=== PATIENT | female | born 1975 | race Two or more races ===

== ENCOUNTER 2018-03-10 11:15 | Emergency (ER) | payer MEDICAID ==
[~2018-03-10] VITALS: Ht 160 cm; Wt 61.4 kg
[2018-03-10 11:24] VITALS: BP 135/87
[2018-03-10] MEDS ORDERED: HYDROcodone/APAP 5/325 TABLET ONE ×2 (11:35→12:33)
[2018-03-10] MEDS ORDERED: HYDROcodone/APAP 5/325 TABLET PO ONE ×2 (12:00→13:00)
== END 2018-03-10 15:40 | disposition home or self-care (01) ==
LOC: ED 13:51
DX: S52.572A Other intraarticular fracture of lower end of left radius, initial encounter for closed fracture (principal); E11.9 Type 2 diabetes mellitus without complications; W00.0XXA Fall on same level due to ice and snow, initial encounter; Y93.89 Activity, other specified; Y92.009 Unspecified place in unspecified non-institutional (private) residence as the place of occurrence of the external cause; Y99.8 Other external cause status
CPT/HCPCS: 29125; 99284